=== PATIENT | male | born 1990 | race African-American/Black ===

== ENCOUNTER 2018-09-11 00:53 | Emergency (ER) | payer MEDICAID, OTHER ==
[~2018-09-11] VITALS: Ht 185.4 cm; Wt 65.8 kg
--- NOTE | 2018-09-11 01:00 | NUR ---
ED Nurse Note: pt walked in c/o left ankle pain x 1 month, pt denies any injuries nor trauma, noted pt ambulating with limp, cms intact, will cont monitor. no sx deformity nor swelling nor wound noted.
[2018-09-11] MEDS ORDERED: HYDROcodone/Acetamin 5/325 tab ORAL ONE (01:15)
[2018-09-11] MEDS ORDERED: IBUPROFEN600 MG ORAL (01:20)
[2018-09-11] MEDS ORDERED: HYDROCODON-ACE1 EA15 ORAL (01:20)
--- NOTE | 2018-09-11 01:21 | Emergency Room Report ---
History of Present Illness General Chief Complaint: Lower Extremity Injury Source: Patient Present Illness HPI This is a 28-year-old male with no past medical history. He presents with chief complaint of left ankle pain. Onset today. No trauma. Pain is worse with walking. Worse with pushing off. Pain is localized to the Achilles tendon. It radiates up to the calf area. Pain is 9 out of 10. Better with rest. Work, he is on his feet a lot. Lot of walking. Allergies: Coded Allergies: SHELLFISH DERIVED (Verified Allergy, Unknown, 09/11/18) Patient History Past Medical History: none, see triage record, old chart reviewed Past Surgical History: none Pertinent Family History: none Social History: Denies: smoking Immunizations: other Reviewed Nursing Documentation: PMH: Agreed; PSxH: Agreed Nursing Documentation-PMH Past Medical History: No History, Except For Review of Systems Eye: Denies: eye pain, blurred vision ENT: Denies: ear pain, nose congestion, throat swelling Respiratory: Denies: cough, shortness of breath Cardiovascular: Denies: chest pain, palpitations Gastrointestinal: Denies: abdominal pain, diarrhea, nausea, vomiting Musculoskeletal: Reports: joint pain; Denies: back pain Skin: Denies: rash Neurological: Denies: headache, numbness Endocrine: Denies: increased thirst, increased urine Hematologic/Lymphatic: Denies: easy bruising All Other Systems: negative except mentioned in HPI Physical Exam Vital Signs Date Time Temp Pulse Resp B/P (MAP) Pulse Ox O2 Delivery O2 Flow Rate FiO2 09/11/18 00:58 97.9 89 14 139/84 (102) 96 Room Air Vitals normal Sp02 EP Interpretation: reviewed, normal General Appearance: well appearing, no apparent distress, alert Head: normocephalic, atraumatic Eyes: bilateral eye PERRL, bilateral eye EOMI ENT: hearing grossly normal, normal pharynx Neck: full range of motion, supple, no meningismus Respiratory: chest non-tender, lungs clear, normal breath sounds Cardiovascular #1: regular rate, rhythm, no murmur Gastrointestinal: normal bowel sounds, non tender, no mass, no organomegaly, no bruit, non-distended Musculoskeletal: back normal, normal range of motion, other - Left ankle: No tenderness over the malleoli. Pulse normal. Very tender over the Achilles tendon. No disruption. Pain and Achilles with pressure of the calf muscle. Psychiatric: mood/affect normal Procedures Splinting Splinting : Consent: Verbal Location: Left lower extremity Hand-Made Type: plaster Splint: poserior short - Done in equis position Pre-Proc Neuro Vasc Exam: normal Post-Proc Neuro Vasc Exam: normal Patient Tolerated: Well Complications: None Medical Decision Making Diagnostic Impression: Primary Impression: Achilles tendinitis, left leg ER Course This patient presents with Achilles tendinitis. No evidence of any rupture. No evidence of any fracture. Will discharge home. Other X-Ray Diagnostic Results Other X-Ray Diagnostic Results : X-Ray ordered: Left ankle x-rays # of Views/Limited Vs Complete: 3 View Indication: Pain EP Interpretation: Yes Interpretation: no dislocation, no soft tissue swelling, no fractures Impression: No acute disease Electronically Signed by: Humberto Robles MD Last Vital Signs Date Time Temp Pulse Resp B/P (MAP) Pulse Ox O2 Delivery O2 Flow Rate FiO2 09/11/18 00:58 97.9 89 14 139/84 (102) 96 Room Air Status: improved Disposition: HOME, SELF-CARE Condition: Stable Scripts Ibuprofen* (MOTRIN*) 600 Mg Tablet 600 MG ORAL THREE TIMES A DAY, #30 TAB 0 Refills Prov: Humberto Robles MD 09/11/18 Hydrocodone/Acetaminophen 5-325* (HYDROCODONE/ACETAMINOPHEN 5-325*) 1 Each Tablet 1 TAB ORAL Q6H PRN for For Pain, #15 TAB 0 Refills Prov: Humberto Robles MD 09/11/18 Referrals: NOT CHOSEN IPA/,REFERRING (PCP) Additional Instructions: Use crutches. Follow-up with your doctor in 7 days. You may need referral to see an orthopedic doctor. Return if symptoms worsen. Humberto Robles MD Sep 11, 2018 01:20
--- NOTE | 2018-09-11 01:30 | NUR ---
ED Nurse Note: splint applied by ERMD, pre and post cms intact.
--- NOTE | 2018-09-11 01:35 | NUR ---
ED Nurse Note: pt cleared to be d/c per ERMD, pt discharge and after care instruction provided w/ prescription, pt education done via discussion and handout, pt advised to follow up with training and development specialist or return to ed if changes in condition, pt verbalized understanding and agrees with plan, vss, ambulatory w/ steady gait, left w/ all belongings accompanied by girlfriend.
[2018-09-11 01:37] VITALS: BP 115/76
--- NOTE | 2018-09-11 02:02 | Diagnostic Imaging Report ---
EXAM: XR Left Ankle Complete, 3 or More Views CLINICAL HISTORY: PAIN TECHNIQUE: Frontal, lateral and oblique views of the left ankle. COMPARISON: No relevant prior studies available. FINDINGS: Bones/joints: Unremarkable. No acute fracture. No dislocation. Soft tissues: Unremarkable. IMPRESSION: Normal left ankle x-rays.
== END 2018-09-11 01:37 | disposition home or self-care (01) ==
LOC: EMR 01:12
DX: M76.62 Achilles tendinitis, left leg (principal); Z91.013 Allergy to seafood
CPT/HCPCS: 29515; 99283

== ENCOUNTER 2019-07-02 01:22 | Emergency (ER) | payer OTHER ==
[~2019-07-02] VITALS: Ht 185.4 cm; Wt 65.8 kg
[~2019-07-02 01:22] MED LIST: HYDROCODON-ACE1 EA15 ORAL; IBUPROFEN600 MG ORAL
[2019-07-02 01:39] VITALS: BP 128/94
--- NOTE | 2019-07-02 01:45 | NUR ---
ER Nurse Note: Pt walked in c/o LT side chest pain since one week. Pt stated pain travels to LT arm; 09/15 pain. Pain is described as pressure and spasms with shortness of breath. Pt stated he was at rest when s/s occured. Pt denies recent travels. VSS, afebrile. Denies cough, smoking. EKG obtained and shown to RAVI.
[2019-07-02 01:59] LABS: BASOPHILS % (AUTO) 2.4 % (0.0-2.0); EOSINOPHILS % (AUTO) 3.6 % (0.0-3.0); HEMOGLOBIN 16.7 G/DL (14.2-18.0); LYMPHOCYTES % (AUTO) 32.3 % (20.0-45.0); MEAN CORPUSCULAR VOLUME 87 FL (80-99); MONOCYTES % (AUTO) 13.1 % (1.0-10.0); NEUTROPHILS % (AUTO) 48.6 % (45.0-75.0); PLATELET COUNT 201 K/UL (150-450); RED BLOOD COUNT 5.31 M/UL (4.70-6.10); RED CELL DISTRIBUTION WIDTH 10.1 % (11.6-14.8)
--- NOTE | 2019-07-02 02:00 | NUR ---
ER Nurse Note: 18 guage IV estblished on RT upper arm; blood drawn. Blood sent to lab; awaiting results. All safety measures met; will continue to monitor.
[2019-07-02 02:10] LABS: ANION GAP 8 mmol/L (5-15); BLOOD UREA NITROGEN 10 mg/dL (7-18); CALCIUM 9.8 MG/DL (8.5-10.1); CARBON DIOXIDE 29 MMOL/L (21-32); CHLORIDE 102 MMOL/L (98-107); POTASSIUM 3.9 MMOL/L (3.5-5.1); SODIUM 139 MMOL/L (136-145)
--- NOTE | 2019-07-02 02:19 | Diagnostic Imaging Report ---
EXAM: XR Chest, 1 View CLINICAL HISTORY: CP TECHNIQUE: Frontal view of the chest. COMPARISON: No relevant prior studies available. FINDINGS: Lungs: Unremarkable. Pleural space: Unremarkable. Heart: Unremarkable. Mediastinum: Unremarkable. Bones/joints: Unremarkable. IMPRESSION: Normal chest x-ray.
[2019-07-02 02:21] LABS: ALANINE AMINOTRANSFERASE 25 U/L (12-78); ALBUMIN 4.4 G/DL (3.4-5.0); ALBUMIN/GLOBULIN RATIO 1.4 (1.0-2.7); ALKALINE PHOSPHATASE 70 U/L (46-116); ASPARTATE AMINO TRANSFERASE 18 U/L (15-37); BILIRUBIN,TOTAL 1.7 MG/DL (0.2-1.0)
[2019-07-02 02:29] LABS: BILIRUBIN,DIRECT 0.3 MG/DL (0.0-0.3)
[2019-07-02] MEDS ORDERED: Omnipaque 350 100ml vial INJ PRN (04:00)
[2019-07-02 04:08] VITALS: BP 118/84
--- NOTE | 2019-07-02 04:09 | NUR ---
ER Nurse Note: Consent signed by pt for CTA; radiologist aware. Pt calm, VSS. Pt stated chest pain is intermittent. Pt denies shortness of breath, new onset of pain. All safety measures met; will continue to montior.
--- NOTE | 2019-07-02 04:44 | NUR ---
ER Nurse Note: Pt in CT with radiologist.
--- NOTE | 2019-07-02 05:36 | Diagnostic Imaging Report ---
EXAM: CT Angiography Chest With Intravenous Contrast CLINICAL HISTORY: CP TECHNIQUE: Axial computed tomographic angiography images of the chest with intravenous contrast. CTDI is 3 mGy and DLP is 130 mGy-cm. One or more of the following dose reduction techniques were used: automated exposure control, adjustment of the mA and/or kV according to patient size, use of iterative reconstruction technique. MIP reconstructed images were created and reviewed. COMPARISON: No relevant prior studies available. FINDINGS: Pulmonary arteries: Unremarkable. No pulmonary embolism. Aorta: No acute findings. No thoracic aortic aneurysm. Lungs: Unremarkable. No mass. No consolidation. Pleural space: Unremarkable. No significant effusion. No pneumothorax. Heart: Unremarkable. No cardiomegaly. No significant pericardial effusion. No evidence of RV dysfunction. Bones/joints: No acute fracture. No dislocation. Soft tissues: Unremarkable. Lymph nodes: Unremarkable. No enlarged lymph nodes. IMPRESSION: Normal chest CTA. No pulmonary embolism. <MYCVCSECTION> Communications: 07/02/19 05:49 Call From [facility] Dr. Ness on 07/01 05:45 (-07:00)
[2019-07-02 05:45] VITALS: BP 122/82
--- NOTE | 2019-07-02 05:46 | NUR ---
ER Nurse Note: Pt returned from radiology, awaiting results. Pt stated pain is getting better 2/10. VSS, afebrile. All safety measures met; will continue to montior.
[2019-07-02] MEDS ORDERED: PRILOSEC OTC20 MG ORAL (05:49)
[2019-07-02 05:55] VITALS: BP 122/82
--- NOTE | 2019-07-02 05:55 | NUR ---
ED Nurse Note: Pt cleared by health care Provider for discharge. DC instructions/prescription was given and explained to pt and verbalized understanding of teachings. Instructed pt to follow up with primary care physican within 3-5 days. All medical deviecs such as ID band and IV removed; site clean and bandaged. Pt is AAO x4, ambulatory and left with all personal belongings.
--- NOTE | 2019-07-03 14:32 | Emergency Room Report ---
History of Present Illness General Chief Complaint: Chest Pain Source: Patient Present Illness HPI Patient is a 28-year-old male brought in by self after increased chest pain. Patient reports having increased chest pain associated with bilateral hand numbness. Reports having prior history of anxiety attacks in the past. Denies any prior lung or cardiac conditions. He states he does not take medications regularly. Denies any recent cough or fever. Had not been vomiting.Patient not been having any leg pain or swelling. Had intermittent episodes of pain. Denies any shortness of breath. Allergies: Coded Allergies: SHELLFISH DERIVED (Verified Allergy, Unknown, 09/11/18) COVID-19 Screening Contact w/high risk pt: No Recent Travel to affected area: No Experienced COVID-19 symptoms?: No COVID-19 symptoms experienced: Shortness of Breath Patient History Past Medical History: see triage record Reviewed Nursing Documentation: PMH: Agreed; PSxH: Agreed Nursing Documentation-PM Past Medical History: No Stated History Review of Systems All Other Systems: negative except mentioned in HPI Physical Exam Vital Signs Date Time Temp Pulse Resp B/P (MAP) Pulse Ox O2 Delivery O2 Flow Rate FiO2 07/02/19 01:35 97.3 78 16 128/94 (105) 100 Room Air Sp02 EP Interpretation: reviewed, normal General Appearance: normal inspection, well appearing, no apparent distress, alert, GCS 15 Head: atraumatic ENT: normal ENT inspection, hearing grossly normal, normal voice Neck: normal inspection, full range of motion, supple, no bony tend Respiratory: normal inspection, lungs clear, normal breath sounds, no respiratory distress, no retraction, no wheezing Cardiovascular #1: regular rate, rhythm, no edema Gastrointestinal: normal inspection, normal bowel sounds, non tender, soft, no guarding, no hernia Genitourinary: no CVA tenderness Musculoskeletal: normal inspection, back normal, normal range of motion Neurologic: alert, motor strength/tone normal, top lift nailer III-XII nml as tested, oriented x3, responsive, speech normal, normal inspection Psychiatric: normal inspection, judgement/insight normal, mood/affect normal Medical Decision Making Diagnostic Impression: Primary Impression: Nonspecific chest pain ER Course Patient presented for chest pain. Differential diagnosis include was not limited to pneumonia, bronchitis, pulmonary embolism, coronavirus infection among others. Because of complexity of patient's case laboratory tests and imaging studies were ordered. EKG interpreted by me showed normal sinus rhythm without acute ST or T wave changes. Atrial enlargement was noted. Laboratory testing was unremarkable except for elevated d-dimer. CT angiogram of the chest was ordered to patient's elevated d-dimer and chest discomfort. CTA read by radiology showed no evidence of acute pulmonary embolism. Patient was noted to have no evidence of groundglass opacities or infiltrates on chest CT. Patient was advised to have outpatient cardiology follow-up. He was advised to return if worse. The patient is advised to follow up with primary care doctor in 1-2 days. Patient is advised to return if any worsening condition or if any changes in status that are concerning. This report is dictated with [employer] manager report software which may occasionally lead to discrepancies related to use of this software. Labs Test 07/02/19 01:45 White Blood Count 5.0 K/UL (4.8-10.8) Red Blood Count 5.31 M/UL (4.70-6.10) Hemoglobin 16.7 G/DL (14.2-18.0) Hematocrit 46.0 % (42.0-52.0) Mean Corpuscular Volume 87 FL (80-99) Mean Corpuscular Hemoglobin 31.3 PG (27.0-31.0) Mean Corpuscular Hemoglobin Concent 36.2 G/DL (32.0-36.0) Red Cell Distribution Width 10.1 % (11.6-14.8) Platelet Count 201 K/UL (150-450) Mean Platelet Volume 7.1 FL (6.5-10.1) Neutrophils (%) (Auto) 48.6 % (45.0-75.0) Lymphocytes (%) (Auto) 32.3 % (20.0-45.0) Monocytes (%) (Auto) 13.1 % (1.0-10.0) Eosinophils (%) (Auto) 3.6 % (0.0-3.0) Basophils (%) (Auto) 2.4 % (0.0-2.0) D-Dimer 0.73 mg/L FEU (0.00-0.49) Sodium Level 139 MMOL/L (136-145) Potassium Level 3.9 MMOL/L (3.5-5.1) Chloride Level 102 MMOL/L (98-107) Carbon Dioxide Level 29 MMOL/L (21-32) Anion Gap 8 mmol/L (5-15) Blood Urea Nitrogen 10 mg/dL (7-18) Creatinine 1.0 MG/DL (0.55-1.30) Estimat Glomerular Filtration Rate > 60 mL/min (>60) Glucose Level 84 MG/DL (74-106) Calcium Level 9.8 MG/DL (8.5-10.1) Total Bilirubin 1.7 MG/DL (0.2-1.0) Direct Bilirubin 0.3 MG/DL (0.0-0.3) Aspartate Amino Transf (AST/SGOT) 18 U/L (15-37) Alanine Aminotransferase (ALT/SGPT) 25 U/L (12-78) Alkaline Phosphatase 70 U/L (46-116) Troponin I 0.000 ng/mL (0.000-0.056) Total Protein 7.6 G/DL (6.4-8.2) Albumin 4.4 G/DL (3.4-5.0) Globulin 3.2 g/dL Albumin/Globulin Ratio 1.4 (1.0-2.7) Lipase 63 U/L (73-393) Last Vital Signs Date Time Temp Pulse Resp B/P (MAP) Pulse Ox O2 Delivery O2 Flow Rate FiO2 07/02/19 05:55 97.7 60 16 122/82 99 Room Air Status: improved Disposition: HOME, SELF-CARE Condition: Stable Scripts Omeprazole Magnesium (PRILOSEC OTC) 20 Mg Tablet. 20 MG ORAL DAILY, #30 TAB Prov: Geovanni Ness MD 07/02/19 Patient Instructions: Nonspecific Chest Pain Additional Instructions: Follow up with your doctor for further evaluation of chest pain. Drink plenty of fluids. Follow up with your doctor for recheck. Geovanni Ness MD Jul 03, 2019 14:32
== END 2019-07-02 05:55 | disposition home or self-care (01) ==
LOC: EMR 01:36
DX: R07.9 Chest pain, unspecified (principal); R20.2 Paresthesia of skin; Z91.013 Allergy to seafood
CPT/HCPCS: 36415; 71045; 71275; 80053; 82248; 83690; 84484; 85025; 85379; 93005; Q9967; Z7502; 99284